=== PATIENT | male | born 1955 | race Caucasian/White ===

== ENCOUNTER 2025-03-19 14:47 | Emergency (ER) | payer MEDICAID ==
[~2025-03-19] VITALS: Ht 167.6 cm; Wt 75.0 kg
[2025-03-19 14:50] VITALS: O2SAT 99
[2025-03-19] MEDS ORDERED: KETOROLAC 15MG/ML VIAL IM ONE (15:30)
[2025-03-19] MEDS ORDERED: LISINOPRIL 40MG TABLET PO ONE (15:30)
[2025-03-19] MEDS ORDERED: LISINOPRIL 20MG TABLET PO SCH (16:00)
[2025-03-19] MEDS ORDERED: NAPR-1486 MT (18:42)
[2025-03-19 19:48] VITALS: BP 180/89; PULSE 68; RESP 16; TEMP 36.7; O2SAT 100
== END 2025-03-19 19:46 | disposition home or self-care (01) ==
LOC: ER 14:47
DX: S63.502A Unspecified sprain of left wrist, initial encounter (principal); I10 Essential (primary) hypertension; Z79.1 Long term (current) use of non-steroidal anti-inflammatories (NSAID); X58.XXXA Exposure to other specified factors, initial encounter; Y93.55 Activity, bike riding; Y92.89 Other specified places as the place of occurrence of the external cause; Y99.8 Other external cause status
CPT/HCPCS: 73090; 73110; 73130; 99284